=== PATIENT | female | born 1960 | race Caucasian/White ===

== ENCOUNTER → 2020-10-13 | Outpatient (CLI) | payer BC, OTHER | LOC: RAD 15:22 | DX: M25.551 Pain in right hip (principal) | CPT/HCPCS: 73522 ==

== ENCOUNTER → 2021-10-10 | Outpatient (CLI) | payer BC | LOC: KOH-I 11:42 | DX: M25.521 Pain in right elbow (principal) | CPT/HCPCS: 73080 ==

== ENCOUNTER → 2021-12-19 | Outpatient (CLI) | payer BC | LOC: KOH-I 15:44 | DX: M25.552 Pain in left hip (principal); M25.551 Pain in right hip; M54.9 Dorsalgia, unspecified; S33.39XA Dislocation of other parts of lumbar spine and pelvis, initial encounter; M48.07 Spinal stenosis, lumbosacral region | CPT/HCPCS: 72100; 73522 ==